=== PATIENT | female | born 2000 | race Caucasian/White ===

== ENCOUNTER 2023-06-04 22:26 | Emergency (ER) | payer BC, SELFPAY ==
[2023-06-04 22:29] VITALS: BP 116/70
[2023-06-04] MEDS: NSS 1000 IV (22:49)
[2023-06-04 22:52] VITALS: BMI 22.0
[2023-06-04 22:56] LABS: % Basophils 0.8 % (0-2); % Immature Granulocytes 0.2 % (0-0.5); % Lymphocytes 56.4 % (20.5-51.1); % Monocytes 9.4 % (1.7-9.3); % Neutrophils 32.2 % (42.2-75.2); Absolute Basophils 0.1 10^3/uL (0-0.2); Absolute Eosinophils 0.1 10^3/uL (0-0.7); Absolute Lymphocytes 5.5 10^3/uL (1.2-3.4); Absolute Monocytes 0.9 10^3/uL (0.1-0.6); Absolute Neutrophils 3.1 10^3/uL (1.4-6.5); Hematocrit 35.9 % (37.0-47.0); Hemoglobin 12.8 g/dL (12.0-16.0); Mean Corp Hgb Conc. 35.7 g/dL (33.0-37.0); Mean Corpuscular Hgb 30.7 pg (27.0-31.0); Mean Corpuscular Volume 86.1 fL (81.0-99.0); Mean Platelet Volume 8.6 fL (7.4-10.4); Nucleated Red Blood Cells % 0 %; Platelet Count 449 10^3/uL (130-400); Red Blood Cell Count 4.17 10^6/uL (4.20-5.40); Red Cell Dist. Width 11.9 % (11.5-14.5); White Blood Cell Count 9.8 10^3/uL (4.8-10.8)
[2023-06-04 23:07] LABS: HCG, Serum Qualitative Screen Negative
--- NOTE | 2023-06-04 23:14 | ED.GENMED ---
History of Present Illness
General
Chief Complaint: Dizziness
Source: patient and spouse
Exam Limitations: none
Time Seen by Provider: 06/04/23 22:43
Nursing documentation reviewed up to this point in time: agreed with
Travel History
Have you had any contact with someone who has COVID-19?: No
Do you have any symptoms of coronavirus? Fever > 100 degrees, chills, cough, shortness of breath, sore throat, loss of taste or smell, muscle aches, or headache?: No
History of Present Illness
History of Present Illness:
23-year-old female with past medical history of migraines presenting to the emergency department with concerns of lightheadedness that occurred after laying down while doing Pilates roughly an hour prior to arrival to the emergency department. Has
felt some shortness of breath associated and has been breathing heavily her heart rate also was elevated she also claims she feels tingling to extremities as well. Denies specific chest pain denies recent illness or viral syndromes no drug use or
alcohol use.
Review of Systems
Review of Systems
Allergies reviewed?: Yes
All Other Systems: ROS reviewed and negative except as documented in HPI and ROS
Phy Exam
Physical Exam
Physical Exam:
GENERAL: Alert , in no apparent distress
EYE: pupils equal and reactive
NECK: Supple, no significant adenopathy.
ENT: o/p clr, mmm.
CARDIAC: Regular rate and rhythm .
LUNGS: Clear breath sounds bilaterally, no acute respiratory distress, no wheezes/rales/rhonchi
ABDOMEN: Soft, without focal tenderness, no r/g, no cvat
NEUROLOGICAL: Alert and oriented, no focal neuro deficits
SKIN: Warm and dry, skin intact.
MUSCULOSKELETAL: Randomly jerking arm movements. No edema, well perfused.
PSYCH: Pressured speech
Course
Orders/Labs/Results
Orders:
Orders
06/04/23 22:38
EKG [Electrocardiogram (*1)] Urgent
Reason for Study: Tachycardia
Test Result ONCE
06/04/23 22:39
EKG- Treatment ONCE
06/04/23 22:48
CBC/With Diff [Complete Blood Count/With Diff] Urgent
CMP [Comprehensive Metabolic Panel] Urgent
HCG, Serum Qualitative Screen Urgent
Magnesium Urgent
Comment: ADDED
06/04/23 22:49
0.9% Sodium Chloride 1000 ml [Nss] 1,000 ml IV BOLUS
06/04/23 23:17
Add On- LAB Urgent
Tests Added?: magnesium level
06/04/23 23:30
Potassium Chloride [KCl] 20 meq 0.9% Sodium Chloride 150 ml [Nss] 150 ml IV NOW
06/05/23 00:31
EKG [Electrocardiogram (*1)] Urgent
Reason for Study: Tachycardia
EKG- Treatment ONCE
06/05/23 00:34
BMP [Basic Metabolic Panel] Urgent
06/05/23 01:42
Alprazolam [Xanax] 0.25 mg .ROUTE .STK-MED ONE
06/05/23 01:49
Meclizine [Antivert] 25 mg .ROUTE .STK-MED ONE
Abnormal Lab Results
06/04/23 06/05/23
22:48 00:34
RBC 4.17 L 10^6/uL
(4.20-5.40)
Hct 35.9 L %
(37.0-47.0)
Plt Count 449 H 10^3/uL
(130-400)
Absolute Lymphs (auto) 5.5 H 10^3/uL
(1.2-3.4)
Absolute Monos (auto) 0.9 H 10^3/uL
(0.1-0.6)
Neutrophils % 32.2 L %
(42.2-75.2)
Lymphocytes % 56.4 H %
(20.5-51.1)
Monocytes % 9.4 H %
(1.7-9.3)
Potassium 2.8 L mmol/L
(3.5-5.1)
Carbon Dioxide 13 L* mmol/L 21 L mmol/L
(22-30) (22-30)
Creatinine 0.5 L mg/dL
(0.6-1.0)
Glucose 164 H mg/dl 122 H mg/dl
(70-99) (70-99)
Calcium 10.7 H mg/dl
(8.4-10.2)
Albumin 5.1 H g/dl
(3.5-5.0)
06/04/23 22:48
06/05/23 00:34
Vital Signs
Initial and Last Documented VS:
Initial Vital Signs
Temp Pulse Resp BP Pulse Ox
97.6 F 150 28 116/70 98
06/04/23 22:29 06/04/23 22:29 06/04/23 22:29 06/04/23 22:29 06/04/23 22:29
Last Documented Vital Signs
Temp Pulse Resp BP Pulse Ox
97.6 F 105 15 109/89 100
06/04/23 22:29 06/05/23 00:45 06/05/23 00:45 06/05/23 00:00 06/05/23 00:45
MDM/Problems Addressed
MDM/Problems Addressed:
23-year-old female presenting to the emergency department today due to having abrupt onset of symptoms while doing Pilates which she felt lightheaded dizziness. Patient presented tachypneic elevated heart rate. EKG shortened ID and prolonged QTc.
Patient had no focal neurologic deficits. Patient monitored here on the monitor heart rate improving into the 80s without specific treatment other than fluids patient's respiratory rate slowed as well labs did show slightly low potassium and low
carbon dioxide however this is most like secondary to hyperventilation. After decrease in heart rate EKG was repeated without ongoing ID shortening or QTc prolongation. Additionally labs repeated and patient was given supplementation of potassium.
Labs repeated and normal. Patient feeling much better after treatment with meclizine will follow-up closely as an outpatient. Return precautions given.
*Critical Care Note
Total Time (30-74mins, 75-104mins- exclusive of procedures): Not Applicable
ED Attending Note
-
Portions of this chart may have been created with voice recognition software.� Occasional wrong word or��sound alike� substitutions may have occurred due to the inherent limitations of voice recognition software.
Discharge Plan
Departure
Patient Disposition: Home (Routine Discharge)
Date of Disposition: 06/05/23
Time of Disposition: 03:00
Patient with high blood pressure during this ER visit?: No
Condition: Good
Covid-19: Not Applicable
Discharge Problem:
Vertigo
Prescriptions:
No Action
No Current Medications
0
Referrals:
Donavon Morales DO [Family Provider] -
Interventions
Interventions:
*Risk Screen - Suicide Last Done: 06/04/23 22:29
*General Assessment Last Done: 06/04/23 22:45
*Neglect/Abuse Screening Last Done: 06/04/23 22:29
ED- Fall Risk Assessment Last Done: 06/04/23 22:45
*ED COVID-19 Vaccine History Last Done: 06/04/23 22:45
ED-Psychological Assessment Last Done: 06/04/23 22:45
ED- Neurological Assessment Last Done: 06/05/23 00:35
ED- Cardiac Assessment Last Done: 06/05/23 00:35
ED Swallowing Screen Last Done: 06/04/23 22:45
Discharge Date and Time
Discharge Date/Time: 06/05/23 03:05
Print Language: ARABIC
[2023-06-04 23:16] LABS: ALT (SGPT) 19 U/L (0-35); AST (SGOT) 27 U/L (14-36); Albumin 5.1 g/dl (3.5-5.0); Alkaline Phosphatase 55 U/L (38-126); Blood Urea Nitrogen 13 mg/dl (7-17); Calcium 10.7 mg/dl (8.4-10.2); Carbon Dioxide 13 mmol/L (22-30); Chloride 103 mmol/L (98-107); Estimated Creatinine Clearance > 125 ml/min; Glucose 164 mg/dl (70-99); Potassium 2.8 mmol/L (3.5-5.1); Sodium 137 mmol/L (135-145); Total Bilirubin 0.6 mg/dl (0.2-1.3); Total Protein 7.4 g/dl (6.3-8.2); eGFR > 60.00
[2023-06-04] MEDS: KCL 160 MEQ IV (23:43)
[2023-06-04 23:47] VITALS: BP 125/86
[2023-06-05] VITALS: BP 109/89
[2023-06-05 00:03] LABS: Magnesium 1.9 mg/dl (1.6-2.3)
[2023-06-05 01:00] LABS: Blood Urea Nitrogen 13 mg/dl (7-17); Calcium 9.4 mg/dl (8.4-10.2); Carbon Dioxide 21 mmol/L (22-30); Chloride 106 mmol/L (98-107); Estimated Creatinine Clearance > 125 ml/min; Glucose 122 mg/dl (70-99); Potassium 3.6 mmol/L (3.5-5.1); Sodium 137 mmol/L (135-145); eGFR > 60.00
--- NOTE | 2023-06-05 03:29 | DOWNTIME ---
There was a [employer] Downtime on 06/05/2023 from 0100 to 06/05/2023 at 0322. Downtime documentation of patient's care, including medication administrations, has been reconciled in the electronic record per guidelines. Refer to the
patient's paper chart under the miscellaneous tab to see printed paper medication records and downtime forms.
== END 2023-06-05 03:05 | disposition home or self-care (01) ==
LOC: EMR 22:26
PROVIDERS: Physician Assistant; EMERGENCY PHYSICIAN Student in an Organized Health Care Education/Training Program; FAMILY PHYSICIAN Family Medicine
DX: R42 Dizziness and giddiness (principal)
CPT/HCPCS: 99284; 96374; 96361; 80048; 80053; 83735; 84703; 85025; 93005